=== PATIENT | male | born 1980 | race Caucasian/White ===

== ENCOUNTER 2016-09-15 18:59 | Observation (INO) | payer MEDICARE, OTHER ==
[~2016-09-15] VITALS: Ht 185.4 cm; Wt 96.0 kg
[2016-09-15 19:40] LABS: BASO # 0.1 10_X3_uL (0.0-0.1); BASO % 0.9 % (0.2-1.2); EOS # 0.1 10_X3_uL (0.0-0.5); GRAN # 5.6 10_X3_uL (1.8-5.4); HEMATOCRIT 44.7 % (40-51); HEMOGLOBIN 15.6 g/dL (13.7-17.5); LYMPH # 1.3 10_X3_uL (1.3-3.6); LYMPH % 16.6 % (21.8-53.1); MEAN CORPUSCULAR HEMOGLOBIN 30.6 pg (27.0-33.0); MEAN CORPUSCULAR HGB CONC 34.9 g/dL (32.0-36.0); MEAN CORPUSCULAR VOLUME 87.8 fL (79-92); MEAN PLATELET VOLUME 9.8 fl (7.5-11.5); MONO # 0.7 10_X3_uL (0.3-0.8); MONO % 9.5 % (5.3-12.2); PLATELET COUNT 366 x10_3/uL (163-337); RED BLOOD COUNT 5.09 x10_6/uL (4.6-6.1); WHITE BLOOD COUNT 7.7 x10_3/uL (4.2-9.1)
[2016-09-15 19:56] LABS: ALBUMIN 4.2 gm/dL (3.4-5.0); ALKALINE PHOSPHATASE 68 U/L (50-136); ALT/SGPT 10 U/L (7.53-40.17); AMYLASE 35 U/L (15.62-74.58); AST/SGOT 9 U/L (6.66-35.34); BILIRUBIN,TOTAL 0.31 mg/dL (0.0-1.0); BLOOD UREA NITROGEN 11 mg/dL (7-18); CALCIUM 8.7 mg/dL (8.7-10.7); CARBON DIOXIDE 25 mmol/L (21-32); CREATINE KINASE 40 U/L (35-232); CREATININE 0.7 mg/dL (0.6-1.3); GLUCOSE,RANDOM 162 mg/dL (70-99); LIPASE 35 U/L (6.75-60.75); POTASSIUM 3.4 mmol/L (3.5-5.1); SODIUM 137 mmol/L (136-145); TOTAL PROTEIN 6.8 gm/dL (6.4-8.2)
[2016-09-16 01:42] LABS: CKMB < 1.0 ng/ml (0.0-5.0); TROP-I < 0.30 NG/ML (0.00-0.30)
[2016-09-16 07:11] LABS: HEMATOCRIT 44.8 % (40-51); HEMOGLOBIN 15.8 g/dL (13.7-17.5); MEAN CORPUSCULAR HEMOGLOBIN 31.3 pg (27.0-33.0); MEAN CORPUSCULAR HGB CONC 35.3 g/dL (32.0-36.0); MEAN CORPUSCULAR VOLUME 88.9 fL (79-92); MEAN PLATELET VOLUME 9.7 fl (7.5-11.5); RED BLOOD COUNT 5.04 x10_6/uL (4.6-6.1); RED CELL DISTRIBUTION WIDTH 13.2 % (11.6-14.4); WHITE BLOOD COUNT 7.7 x10_3/uL (4.2-9.1)
[2016-09-16 07:42] LABS: ALBUMIN 4.1 gm/dL (3.4-5.0); ALKALINE PHOSPHATASE 63 U/L (50-136); ALT/SGPT 9 U/L (7.53-40.17); AST/SGOT 7 U/L (6.66-35.34); BLOOD UREA NITROGEN 11 mg/dL (7-18); CALCIUM 8.9 mg/dL (8.7-10.7); CARBON DIOXIDE 25 mmol/L (21-32); CREATININE 0.8 mg/dL (0.6-1.3); GLUCOSE,RANDOM 99 mg/dL (70-99); POTASSIUM 3.7 mmol/L (3.5-5.1); SODIUM 139 mmol/L (136-145); TOTAL PROTEIN 6.4 gm/dL (6.4-8.2)
[2016-09-16 07:47] LABS: CKMB < 1.0 ng/ml (0.0-5.0); TROP-I < 0.30 NG/ML (0.00-0.30)
[2016-09-17 06:19] LABS: HEMATOCRIT 45.1 % (40-51); HEMOGLOBIN 15.3 g/dL (13.7-17.5); MEAN CORPUSCULAR HEMOGLOBIN 30.5 pg (27.0-33.0); MEAN CORPUSCULAR HGB CONC 33.9 g/dL (32.0-36.0); MEAN PLATELET VOLUME 9.9 fl (7.5-11.5); RED BLOOD COUNT 5.01 x10_6/uL (4.6-6.1); RED CELL DISTRIBUTION WIDTH 13.3 % (11.6-14.4); WHITE BLOOD COUNT 7.3 x10_3/uL (4.2-9.1)
[2016-09-17 06:35] LABS: ALKALINE PHOSPHATASE 64 U/L (50-136); ALT/SGPT 9 U/L (7.53-40.17); AST/SGOT 7 U/L (6.66-35.34); BILIRUBIN,TOTAL 0.27 mg/dL (0.0-1.0); BLOOD UREA NITROGEN 12 mg/dL (7-18); CALCIUM 8.7 mg/dL (8.7-10.7); CARBON DIOXIDE 27 mmol/L (21-32); CREATININE 0.9 mg/dL (0.6-1.3); GLUCOSE,RANDOM 105 mg/dL (70-99); POTASSIUM 3.7 mmol/L (3.5-5.1); SODIUM 140 mmol/L (136-145); TOTAL PROTEIN 6.4 gm/dL (6.4-8.2)
== END 2016-09-17 15:00 | disposition home or self-care (01) ==
LOC: ER 18:59 → MS 21:18
PROVIDERS: General Practice; ADMIT Family Medicine
PROC: 3E0234Z Introduction of Serum, Toxoid and Vaccine into Muscle, Percutaneous Approach (ICD-10-PCS; principal; 2016-09-17)
PROC: 0DB48ZX Excision of Esophagogastric Junction, Via Natural or Artificial Opening Endoscopic, Diagnostic (ICD-10-PCS; 2016-09-17)
PROC: 0DB68ZX Excision of Stomach, Via Natural or Artificial Opening Endoscopic, Diagnostic (ICD-10-PCS; 2016-09-17)
DX: K29.70 Gastritis, unspecified, without bleeding (principal); K21.9 Gastro-esophageal reflux disease without esophagitis; R10.10 Upper abdominal pain, unspecified; R10.13 Epigastric pain; R11.0 Nausea; R07.9 Chest pain, unspecified; F17.220 Nicotine dependence, chewing tobacco, uncomplicated; Z79.899 Other long term (current) drug therapy; Z83.3 Family history of diabetes mellitus; Z80.9 Family history of malignant neoplasm, unspecified; Z82.49 Family history of ischemic heart disease and other diseases of the circulatory system; Z83.6 Family history of other diseases of the respiratory system; Z23 Encounter for immunization
CPT/HCPCS: 36415; 43239; 71010; 71260; 80053; 82150; 82550; 82553; 83690; 85025; 90653; 90732; 93005; 93041; 96374; 96376; 99070; 99284; 99285-25; G0008; G0378; J2704; J7040; J7635; Q9967